=== PATIENT | female | born 1930 | race Caucasian/White ===

== ENCOUNTER → 2016-07-12 | Outpatient (CLI) | payer MEDICARE ==
[~2016-07-12] MED LIST: ACETAMINOPHEN-H1 TA2 PO; ALL DAY ALLERGY10 MG PO; ALLEGRA ALLERG180 M2 PO; ALLEGRA-D 24 H1 EACH PO; ATENOLOL25 MG PO; ATIVAN0.5 MG PO; BREO ELLIPTA 11 EACH IH; CARDIZEM120 MG PO; CEFTRIAXONE1 GM IJ; CLARITIN10 MG PO; CLINDAMYCIN HC300 MG PO; COREG12.5 M1 NG; COREG3.125 MG PO; COREG6.25 MG PO; COUMADIN2 M1 PO; COUMADIN2 MG PO; COUMADIN3 M1 PO; COUMADIN5 M2 PO; Coumadin2.5 MG PO; D3 DOTS2000 UNIT PO; DONEPEZIL HCL10 MG PO; DONEPEZIL HYDRO10 M1 PO; DOXYCYCLINE100 M3 PO; DUONEB 3 MG/3 ML3 M1 INH; FLUONAZOLE200 MG PO; GUAIFENESIN600 MG PO; KLOR-CON20 MEQ PO; LASIX20 MG PO; LASIX40 MG PO; LOPRESSOR5 MG/5 ML IV; MAPAP325 MG PO; METFORMIN500 MG PO; MIDODRINE HCL5 M1 PO; MIRALAX POWDER17 G1 PO; MIRALAX17 GM PO; MIRALAX17 GM/PACK PO; MORPHINE SULF2 MG/M1 IV; NAMENDA10 MG PO; Nystatin Ointme30 GM T; OXYGEN NAS; PRAVACHOL40 MG PO; PROAMATINE5 MG PO; Q-TUSSIN100 MG/5 M PO; SYMBICORT1 AE1 IH; SYMBICORT1 AE1 INH; TEMAZEPAM15 M1 PO; TRAMADOL HCL50 MG PO; VITAMIN D-32000 UNI1 PO; XANAX0.25 MG PO; ZESTRIL10 MG PO; ZESTRIL5 MG PO; ZITHROMAX Z PA250 MG PO; ZITHROMAX250 MG PO; Zestril,Prinivil5 MG PO
--- NOTE | ~2016-07-12 | PR ---
[place], [place] PROGRESS NOTE NAME: QUANG PETERSON [facility] #: [id number] UNIT #: [id number] ROOM: DOCTOR: NATALY LuisROBI BIRTHDATE: [birth year] DOS: 07/12/2016 CHIEF COMPLAINT: Followup of ulcer of the left lower extremity as well as the right buttock area. HISTORY OF PRESENT ILLNESS: This is an 86-year-old female with a history of dementia who has had a pressure ulcer of the left lower extremity distally secondary to a cast that she had to wear for a recent fracture of her leg. She is from a care home. The wound has been present approximately for 3 weeks now. She has been coming to the Wound Clinic for 2 weeks. We have been using TheraHoney and she has been having a good response to this. The wound continues to get smaller. She also has a pressure ulcer of the right buttock area and some dermatitis secondary to episodes of diaper dermatitis. She was also getting TheraHoney and a foam dressing and a Calazime to the area. In general, her family is with her. They report no new issues. She is trying to stay off of it; however, when she does sit in a wheelchair, she does have a cushion and they have been trying to make sure she is not having episodes of incontinence and sitting in stool or urine. Apparently the cast is being removed when she is in bed and she is going to be using an Aircast now and physical therapy. OBJECTIVE: VITAL SIGNS: Stable. Blood pressure is 108/60, pulse of 80, respirations 20, temperature is 98.7. The wound on the left lower extremity is measuring approximately 1 x 0.6 x 0.1. There is definitely a lot of improvement. The erythema around it is completely resolved much less necrotic tissue. I am able to see at least 30-40% of the base of the wound, whereas before, none of it was visible and there is still a minimal amount of fibrin slough, but it is definitely improved. No debridement was done. Her buttock area wound is also the ulcer is smaller at 0.3 x 0.7 x 0.1. The surrounding erythema is improved, although there is still a fair amount of excoriation present not as much as before, but still pretty marked. No debridement was done. There is minimal fibrin and slough present in the base of the wound. ASSESSMENT AND PLAN: Pressure ulcer of the left lower extremity. It is definitely improving with TheraHoney. I would continue with this for now and she should follow up in one week as well as a pressure ulcer of the buttock area. It is definitely smaller as well and I would continue with TheraHoney. I would actually switch from Calazime to nystatin powder to see if this will help with some excoriation and she should follow up with us in one week. [place], [place] PROGRESS NOTE NAME: QUANG PETERSON UNIT #: [id number] ROOM: DOCTOR: ROBI INGRAM M.D. BIRTHDATE: [birth year] ROBI INGRAM MD CM:STEPHANIE [id number] ROBI INGRAM M.D. 07/12/16 2012 interface
--- NOTE | ~2016-07-12 | WRIGHTHP ---
[place], [place] PATIENT HISTORY AND PHYSICAL EXAM NAME: QUANG PETERSON [facility] #: [id number] UNIT #: [id number] ROOM: DOCTOR: NATALY LuisROBI BIRTHDATE: [birth year] DOS: 06/27/2016 WOUND CARE HISTORY AND PHYSICAL CHIEF COMPLAINT: Ulcer of the left lower extremity. HISTORY OF PRESENT ILLNESS: This is an 86-year-old female who resides in a longterm. She had a recent fall towards the end of May and suffered a closed ankle fracture. She has a fracture boot on the left lower extremity for fracture and she was referred to us from her orthopedic doctors secondary to what appears to be a pressure ulcer that was discovered upon removal of the boot. Her family is with her today, and she has pictures of how it looked at first, which appeared slightly bigger and more irritated before. She is to wear the fracture boot when she is out of bed. Otherwise, she is weightbearing as tolerated with a fracture boot on. PAST MEDICAL HISTORY: Remarkable for dementia, COPD, near syncope. She is oxygen dependent, history of congestive heart failure, diabetes mellitus type 2, hypertension, gout, atrial fibrillation, on Coumadin. Alzheimers dementia, cholelithiasis, hyperlipidemia, obesity, osteoarthritis, history of abdominal pains, tachycardia, leukocytosis, history of elevated PTT, bacteria in the urine, history of left breast mass, history of elevated myoglobin levels, malnutrition, history of sepsis, history of falls, history of dementia as stated above, she is markedly debilitated. There is a past history of edema and apnea. ALLERGIES: QUINOLONES, AVELOX, CIPRO. MEDICATIONS: As follows, Katherine-D 24 - 180/224 daily, midodrine 5 mg t.i.d., Coreg 6.25 b.i.d., Namenda 10 mg daily, Coumadin 3 mg daily, pravastatin 40 mg daily, lisinopril 5 daily, Symbicort 2 inhalations b.i.d., benazepril 10 mg at bedtime, guaifenesin 600 mg q. 12 hours, MiraLax daily, Lasix 20 daily, vitamin D3 2000 units b.i.d. SOCIAL HISTORY: The patient is a longterm resident and does not appear to be ambulatory. She is markedly debilitated. REVIEW OF SYSTEMS: The really is unable to provide any significant review of systems The family does report, however, that she does not eat well. PHYSICAL EXAMINATION: GENERAL: This is an elderly female who moans and groans just upon being placed on to the bed. She appears younger than her stated age, is in no acute respiratory distress. VITAL SIGNS: Her temperature is 98.1, pulse is 70, respirations 18, blood pressure is 130/58. EXTREMITIES: She has what appears to be unstageable pressure ulcer of the left lateral distal lower leg that is measuring approximately 1 x 1 x 0.1. There is adherent slough obscuring the base of the wound. There is no purulence noted. The patient had noncompressible ABIs while in clinic today; however, she did have recent looks like recent arterial duplex of the left leg. The SIMÓN was 1.12 [place], [place] PATIENT HISTORY AND PHYSICAL EXAM NAME: QUANG PETERSON UNIT #: [id number] ROOM: DOCTOR: ROBI INGRAM M.D. BIRTHDATE: [birth year] and it did say the waveforms are triphasic, there is some mild plaque, biphasic waveforms are seen, but it does not say exactly where but the impression was normal, left lower extremity arterial ultrasound. Currently, the rest of her exam, I do not appreciate any JVD. She has oxygen on. Her lungs are clear to auscultation anteriorly. Cardiovascular exam is S1, S2 irregularly irregular. Abdomen is obese. Extremities, she has really no edema. She is confused and unable to provide review of systems. LABORATORY DATA: Done on the 06/22/2016 show albumin of 2.6, BUN of 19, creatinine of 0.98, chloride 98, potassium is 4, sodium 145, total protein is 6.9. ASSESSMENT AND PLAN: Patient has an unstageable pressure ulcer of the left lower extremity. It does appear that she has adequate vascular status at this point. The pressure was related to the boot, which she needs for her healing up for fracture, but they are to remove the boot whenever she is in bed or the boot only needs to be placed when she is out of bed, so this needs to be done. At this point, since there is some slough noted in the base of the wound. I would like to try TheraHoney which also has an antibacterial properties, I would like to use this to see if we can help clean the wound up with TheraHoney due to the patient's severe dementia. I would like to try and see how much we can clean it up with topical agents first before a sharp debridement will be considered. I would also use a foam dressing as this will help protect it and pad the area even further and she does have orders from ortho regarding patting the leg even further with other materials. It is apparently she had ABD pad as well as an Ventura wrap on as well. So, we will follow up the patient in one week. ROBI INGRAM MD CM:HISPHYS:PATIENT HISTORY AND PHYSICAL EXAMINATION [id number] ROBI INGRAM M.D. 07/09/16 0652 interface
== END ==
LOC: WOUNDCARE 06-27 11:33
DX: E11.622 Type 2 diabetes mellitus with other skin ulcer (principal); L89.313 Pressure ulcer of right buttock, stage 3; L89.890 Pressure ulcer of other site, unstageable; F03.90 Unspecified dementia, unspecified severity, without behavioral disturbance, psychotic disturbance, mood disturbance, and anxiety; L22 Diaper dermatitis; S82.892D Other fracture of left lower leg, subsequent encounter for closed fracture with routine healing

== ENCOUNTER → 2016-07-19 | Outpatient (CLI) | payer MEDICARE ==
--- NOTE | ~2016-07-19 | PR ---
[place], [place] PROGRESS NOTE NAME: QUANG PETERSON [facility] #: [id number] UNIT #: [id number] ROOM: DOCTOR: NATALY LuisROBI BIRTHDATE: [birth year] DOS: 07/19/2016 CHIEF COMPLAINT: Followup of an ulcer of the left lower extremity as well as the right buttock area. HISTORY OF PRESENT ILLNESS: This is an 86-year-old female with a history of severe dementia who is very debilitated, who has had a pressure ulcer of the left lower extremity distally secondary to a cast that she had had to wear for a recent fracture of her leg. She is from a retirement facility. The wound has been present for approximately weeks now, she has been coming to the Wound Clinic for 3 weeks. We have been using TheraHoney and it does seem to have helped somewhat. She is accompanied usually by her family. However, today, she has a caregiver who knows her and is familiar with the patient and the family who is here. She states that she was given an Aircast to try instead of the other cast that she was wearing and this was actually not helping current therapy. It was making it more difficult for her to do anything in therapy so they discontinued the Aircast. She says currently she is not getting any therapy as she is not able to really to do any type of physical activity. She does state that for the most day she gets up in a sitting in a chair from morning to early afternoon. She does have cushion on her chair. They have been no new reports as far as any concerns on the buttock area at this time, any new issues regarding that. However, her caregiver who is accompanying here was concerned about some area on her left heel that felt a little bit mushy and also she had noticed some breakdown also above this area, which is new. They offer no other specific complaints. PHYSICAL EXAMINATION: SKIN: Today, she is afebrile, pulse is 66, respirations are 20, temperature is 98.4, blood pressure is 124/64. The left lower leg wound is measured about the same in length and width from when she first came at 1 x 1 cm. There is increase in the depth at 0.2 secondary to some of the necrotic tissue being removed by the TheraHoney. The surrounding erythema is definitely improved. There is no purulence, cellulitis or tenderness associated; however, there is still a moderate amount of ascitic slough present in the base of the wound. The right gluteal fold area is definitely improved in appearance. The excoriation is also much improved as well. The wound appearance is improved. There is less adherent slough present and it does look fairly stable. The measurements are 0.4 x 0.7 x 0.2 and there is really minimal fibrin slough present, but overall appearance of the wound is much improved. Her left heel at the heel is mushy and has some nonblanchable erythema. It is not acutely tender and there is no open area on the heel; however, above that near the Achilles area, there is some excoriation and breakdown and what appears to be an unstageable area of breakdown around the Achilles area. No debridement was done today. ASSESSMENT AND PLAN: The pressure ulcer of the right gluteal fold is stable and I would continue with TheraHoney. As long as she continues to improve with the TheraHoney, I would continue with this for now. She also has foam being used. For the left lateral leg wound, the wound itself appears stable; however, there is still fibrin slough present in the base of the wound. Due to the patient's mental status and gets quite easily agitated, I would try conservative treatment [place], [place] PROGRESS NOTE [id number] UNIT #: [id number] ROOM: DOCTOR: ROBI INGRAM M.D. BIRTHDATE: [birth year] with topical debriding agents if possible. Since the TheraHoney has been used for a few weeks now without much change yet, I would see if we can try to get Santyl on the wounded instead if this is possible. I would like to try Santyl for now and to have her change the foam every other day. The other area that I am concerned about is her heel and the Achilles area. I explained to the caregiver who is here that this is the pressure related problem and that when she is lying in bed, she should really have her heels floated, especially with where the Achilles tendon is and not have pillows right pressing on that area should be above that, so that her heels and Achilles area are completely floated. In the meantime, I would add a foam dressing to protect it and encourage the patient to be offloaded as much as possible while she is in bed. I did place a call to Dr. Mitchell's office who is her orthopedic surgeon to see if there is some way that her walking cast boot can be padded with some foam to see if this would help as well. It is not clear to me if it is from the device or more likely this is from her lying in bed with her heels not being offloaded, it is most likely the culprit I think. The patient has multiple comorbidities, is quite very debilitated and these issues will make wound healing difficult for her. Followup is in one week. ROBI INGRAM MD CM:STEPHANIE [id number] ROBI INGRAM M.D. 07/19/16 1057 interface
== END ==
LOC: WOUNDCARE 01:32
DX: E11.622 Type 2 diabetes mellitus with other skin ulcer (principal); L89.313 Pressure ulcer of right buttock, stage 3; L89.890 Pressure ulcer of other site, unstageable; L89.610 Pressure ulcer of right heel, unstageable; L22 Diaper dermatitis; F03.90 Unspecified dementia, unspecified severity, without behavioral disturbance, psychotic disturbance, mood disturbance, and anxiety

== ENCOUNTER 2016-07-25 09:52 | Inpatient (IN) | payer MEDICARE ==
[~2016-07-25] VITALS: Ht 167.6 cm; Wt 97.6 kg
--- NOTE | ~2016-07-25 | CON ---
[place], [place] REPORT OF CONSULTATION NAME: QUANG PETERSON [facility] #: [id number] UNIT #: [id number] ROOM: [id number] DOCTOR: NATALY LuisROBI BIRTHDATE: [birth year] DOS: 07/25/2016 WOUND CARE CONSULTATION HISTORY OF PRESENT ILLNESS: This is an 86-year-old female with multiple medical problems who resides in a assisted and was sent to the Emergency Department for markedly elevated INR. She is known to me from the wound clinic. We have been following her for her pressure ulcer of her left lower extremity, which is located on the lateral distal leg of the left lower leg as well as a pressure ulcer of the right gluteus. She has had a pressure ulcer of her leg for approximately 4 weeks now. It started out from a cast that she had to wear for a recent fracture of her left leg. She currently is only using this device whenever she is up out of bed; however, the patient is markedly debilitated and is really nonambulatory. She is in order to move from her wheelchair, she has to be lifted by a Radha in our clinic. In any case, she has had the wound on her left leg for approximately 4 weeks now. It has been responding fairly well to TheraHoney and a foam dressing. In addition, she has had a pressure ulcer of the buttock area that was initially staged as a stage 3 as she had some fibrin slough present in the base of it, although it was noted to be relatively superficial still there was some surrounding area of denuded skin and dermatitis secondary to incontinence that was also being addressed as well. This was also being treated with TheraHoney and a foam dressing. Of concern last week in the clinic, it was noted that she had what appeared to start of her pressure ulcer of the left heel, stage 1, as there was an area of non-blanchable erythema of the left heel, and there was also an excoriated area. There was an excoriated area and breakdown near the Achilles area as well in the left heel and that was felt to be secondary to either friction or from pressure from being bedridden. It was recommended that the patient had her heels floated and protected with a foam dressing when she was in bed at that time. This patient, however, was brought in today through the Emergency Department for an elevated INR of 11.4. Apparently, this was just some routine blood work that was done when she was apparently transferring to [facility] from [facility] . The family is at her bedside. Otherwise, she has had no specific new complaints. They have noticed a cough and requiring increased nebulizer treatments, but other than that, there are no new reports per family or patient. PAST MEDICAL HISTORY: Significant for the following abdominal pain, atrial fibrillation, bacteriuria, congestive heart failure, cholelithiasis, closed avulsion fracture of the distal end of the left fibula, COPD, dementia. She is on chronic oxygen, diabetes type 2, hypertension, elevated CRP, elevated CO2 level, elevated myoglobin, elevated PTT, history of fall, hypertension, hyperglycemia, hyperlipidemia, left breast mass, leukocytosis, moderate malnutrition, near syncope, nondisplaced fracture of the medial malleolus of the left tibia, obesity, osteoarthritis, sepsis, SIRS, tachycardia. PAST SURGICAL HISTORY: She is status post cataract surgery, cholecystectomy. SOCIAL HISTORY: She is a resident at the assisted which she does not drink alcohol or use illicit drugs. She is a former smoker. [place], [place] REPORT OF CONSULTATION NAME: QUANG PETERSON UNIT #: [id number] ROOM: 416 DOCTOR: ROBI INGRAM M.D. BIRTHDATE: [birth year] FAMILY HISTORY: Noncontributory at this time. CURRENT MEDICATIONS: That have been ordered are as follows: Vitamin D 2000 units in the morning, MiraLax powder daily, Namenda 10 mg daily, Zestril 5 daily, Lasix 20 daily, enoxaparin 40 mg subcutaneous looks to be starting tomorrow, Dulera 200 q.12 hours, Mucinex 600 p.o. b.i.d., Aricept 10 mg at bedtime, Coreg 6.25 b.i.d., Pravachol 40 mg q.p.m., midodrine 5 mg t.i.d., albuterol nebulizers t.i.d. p.r.n., Zofran p.r.n., milk of magnesium 30 mL p.o. daily, Dulcolax 5 daily, Tylenol p.r.n., vitamin K was given it looks like already. ALLERGIES: FLUOROQUINOLONE. REVIEW OF SYSTEMS: Unobtainable at this time. She does appear to be alert. She does recognize me as far as knowing that she has seen me before. She tends to moan and groan whenever she is being transferred or moved around and this seems to be about her baseline. The family does report that she has had a cough, and they have had to give her extra neb treatments yesterday, also her appetite is not generally good. No other specific complaints are noted at this time, the other review of systems are not available presently. PHYSICAL EXAMINATION: VITAL SIGNS: Temperature is 97.9, pulse of 98, respirations 20, blood pressure was 134/107, but previously 4 hours prior to that, it was 102/88. GENERAL: The patient is in no acute respiratory distress, but does have some tachypnea and some pursed lip breathing. She is on oxygen and she has what appears to be a productive cough. LUNGS: She has some coarse rhonchi anteriorly. CARDIOVASCULAR: S1, S2, regular rate and rhythm, but it is difficult to hear heart sounds secondary to patient's coarse rhonchi that are noted. ABDOMEN: Obese. EXTREMITIES: She has really no edema on her left lateral lower leg distally above the lateral malleolus is a small open area. It is definitely improved from the last time I have seen it. It is measuring approximately 0.9 x 0.9 x 0.2. There is a minimal to moderate amount of fibrin slough present at the base of the wound. The depth is 0.2. There is no surrounding erythema, purulence or tenderness. This wound looks stable at this time. I do not appreciate any erythema of her left heel, presently this was noted last week in the clinic, but she still has an area of small excoriations and breakdown. It seems that this area has scabbed over on the left heel, and this also appears stable on her gluteal fold. On the right gluteal fold, she has an open wound that is measuring approximately 0.4 x 0.7 x 0.2. There is minimal fibrin slough present in the base of the wound. The surrounding excoriation and dermatitis that was present on prior occasion is definitely improved as well. LABORATORY DATA: Her white count is 8, her hemoglobin is 11, her hematocrit is 37.3, platelets are 260. Her sodium is 146, potassium is 3.5, chloride is 102, BUN is 24, creatinine is 0.94, glucose is 149. LFTs are normal. Albumin is low at 2.0. Her INR is over 11. [place], [place] REPORT OF CONSULTATION NAME: QUANG EPTERSON UNIT #: [id number] ROOM: 416 DOCTOR: ROBI INGRAM M.D. BIRTHDATE: [birth year] ASSESSMENT AND PLAN: Pressure ulcer of the left leg, which I would classify as unstageable secondary to the fibrin slough at the base of the wound, although part of base of the wound is visible. This wound appears to be stable. We have been using TheraHoney in the clinic and foam, and it does appear to be improving on this regimen for now. I would continue this regimen as it does seem to be helping. We may want to consider in the future considering changing to a DuoDERM instead of the foam to help remove some of the slough, however, for now, I would just use the foam at this time. The area that I had noted last week in the clinic is stable on the left heel. There is still some excoriation and some breakdown of the Achilles area, so I would keep this area protected with a foam dressing as well. I think this is mostly from keeping her heels on her bed and not offloading while she is in bed, so we will definitely have to encourage offloading and keeping her heels and Achilles area offloaded. Family reports that she did have an offloading device that they were using in the assisted that was shaped as a donut and that definitely seems to have helped, so this may be something that the family can consider in the future as well. As far as her pressure ulcer of her buttock area, this is stable and it does definitely looks improved overall. The dermatitis is also calmed down quite a bit as well, so I will continue with TheraHoney and antifungal powder, which we were using and a foam dressing. We will encourage offloading and keep her off of this area if possible. If is going to be up in a chair, she will definitely need a cushion and I would limit sitting in one position for any extended period of time. The patient has multiple medical problems that are being managed by her medical team, and these issues may make wound healing difficult. She is here with her multiple medical problems and her medical team is managing them. ROBI INGRAM MD CM:CONSTR:REPORT OF CONSULTATION 1650 08/03/16 1332 interface
[2016-07-25 09:52] VITALS: BP 98/60
[~2016-07-25 09:52] MED LIST changes: -ACETAMINOPHEN-H1 TA2 PO; -ALL DAY ALLERGY10 MG PO; -ALLEGRA ALLERG180 M2 PO; -ATIVAN0.5 MG PO; -BREO ELLIPTA 11 EACH IH; -CEFTRIAXONE1 GM IJ; -CLARITIN10 MG PO; -COREG12.5 M1 NG; -COUMADIN2 MG PO; -Coumadin2.5 MG PO; -D3 DOTS2000 UNIT PO; -DONEPEZIL HCL10 MG PO; -FLUONAZOLE200 MG PO; -LOPRESSOR5 MG/5 ML IV; -MAPAP325 MG PO; -MIDODRINE HCL5 M1 PO; -MIRALAX POWDER17 G1 PO; -MORPHINE SULF2 MG/M1 IV; -Q-TUSSIN100 MG/5 M PO; -SYMBICORT1 AE1 INH; -TEMAZEPAM15 M1 PO; -TRAMADOL HCL50 MG PO; -ZESTRIL5 MG PO
[2016-07-25 10:16] LABS: BASO # 0.1 10*3/uL (0.0-0.1); BASO % 0.6 % (0.0-1.0); EOS # 0.1 10*3/uL (0.0-0.4); EOS % 0.9 % (1.0-4.0); HEMATOCRIT 37.3 % (37.0-47.0); IG # 0.1 10*3/uL (0.0-0.1); LYMPH # 1.4 10*3/uL (1.3-4.4); LYMPH % 17.2 % (27.0-41.0); MEAN CELL VOLUME 95.9 fl (81.0-99.0); MEAN CORPUSCULAR HGB 28.3 pg (27.0-31.0); MEAN CORPUSCULAR HGB CONC 29.5 g/dl (33.0-37.0); MEAN PLATELET VOLUME 10.6 fl (9.6-12.3); MONO # 0.7 10*3/uL (0.1-1.0); MONO % 9.1 % (3.0-9.0); NEUT # 5.7 10*3/uL (2.3-7.9); NEUT % 71.3 % (47.0-73.0); NUCLEATED RED BLOOD CELL 0.2 % (0.0-0.0); PLATELET COUNT AUTOMATED 260 10*3/uL (130-400); RED BLOOD COUNT 3.89 10*6/uL (4.10-5.10); RED CELL DISTRI WIDTH 13.7 % (0-14.5)
[2016-07-25 10:34] LABS: PROTHROMBIN TIME > 130.0 SECONDS (9.0-12.4)
[2016-07-25 10:35] LABS: ALKALINE PHOSPHATASE 112 U/L (45-117); BILIRUBIN, TOTAL 0.5 mg/dl (0.2-1.0); BUN 24 mg/dl (7-24); CARBON DIOXIDE 38 mmol/L (21-32); CHLORIDE 102 mmol/L (98-107); EST GLOM FILT AFRICAN AMERICAN > 60 ml/min; GLUCOSE 149 mg/dL (65-99); POTASSIUM 3.5 mmol/L (3.5-5.1); SGOT/AST 27 IU/L (3-35); SGPT/ALT 28 U/L (12-78); SODIUM 146 mmol/L (136-145); TOTAL PROTEIN 6.6 gm/dL (6.4-8.2)
[2016-07-25 10:36] LABS: INTERNATIONAL NORM RATIO > 11.4 (2.0-3.5)
[2016-07-25] MEDS ORDERED: ATIVAN0.5 MG PO (11:54)
[2016-07-25] MEDS ORDERED: CLARITIN10 MG PO (11:55)
[2016-07-25] MEDS ORDERED: TRAMADOL HCL50 MG PO (11:55)
[2016-07-25] MEDS ORDERED: BREO ELLIPTA 11 EACH IH (11:56)
[2016-07-25 12:02] VITALS: BP 82/58; BP 94/58
[2016-07-25 12:40] VITALS: BP 102/88
[2016-07-25 16:00] VITALS: BP 134/107
[2016-07-25 20:00] VITALS: BP 125/70
[2016-07-26 03:04] VITALS: BP 125/70
[2016-07-26 07:02] LABS: BUN 19 mg/dl (7-24); CARBON DIOXIDE 37 mmol/L (21-32); CHLORIDE 103 mmol/L (98-107); EST GLOM FILT AFRICAN AMERICAN > 60 ml/min; GLUCOSE 117 mg/dL (65-99); POTASSIUM 3.8 mmol/L (3.5-5.1); SODIUM 146 mmol/L (136-145)
[2016-07-26 07:10] LABS: BASO # 0.1 10*3/uL (0.0-0.1); BASO % 0.7 % (0.0-1.0); EOS # 0.1 10*3/uL (0.0-0.4); EOS % 1.1 % (1.0-4.0); HEMATOCRIT 39.1 % (37.0-47.0); HEMOGLOBIN 11.3 g/dl (12.0-16.0); IG # 0.1 10*3/uL (0.0-0.1); LYMPH # 1.8 10*3/uL (1.3-4.4); LYMPH % 21.1 % (27.0-41.0); MEAN CELL VOLUME 96.1 fl (81.0-99.0); MEAN CORPUSCULAR HGB 27.8 pg (27.0-31.0); MEAN CORPUSCULAR HGB CONC 28.9 g/dl (33.0-37.0); MONO # 0.8 10*3/uL (0.1-1.0); MONO % 9.6 % (3.0-9.0); NEUT # 5.6 10*3/uL (2.3-7.9); NEUT % 66.5 % (47.0-73.0); NUCLEATED RED BLOOD CELL 0.2 % (0.0-0.0); PLATELET COUNT AUTOMATED 254 10*3/uL (130-400); RED BLOOD COUNT 4.07 10*6/uL (4.10-5.10); RED CELL DISTRI WIDTH 13.6 % (0-14.5); WHITE BLOOD COUNT 8.4 10*3/uL (4.8-10.8)
[2016-07-26 07:30] LABS: INTERNATIONAL NORM RATIO 1.4 (2.0-3.5); PROTHROMBIN TIME 15.1 SECONDS (9.0-12.4)
[2016-07-26 08:00] VITALS: BP 134/68
[2016-07-26 12:00] VITALS: BP 128/64
[2016-07-26] MEDS ORDERED: ALL DAY ALLERGY10 MG PO (14:40)
[2016-07-26] MEDS ORDERED: COUMADIN2 MG PO (14:40)
[2016-07-26 16:00] VITALS: BP 117/65
[2016-08-07] MEDS ORDERED: ALLEGRA ALLERG180 M2 PO (10:56)
[2016-08-07] MEDS ORDERED: COUMADIN2 MG PO (10:57)
[2016-08-07] MEDS ORDERED: DONEPEZIL HCL10 MG PO (10:57)
[2016-08-07] MEDS ORDERED: D3 DOTS2000 UNIT PO (10:57)
[2016-08-07] MEDS ORDERED: DUONEB 3 MG/3 ML3 M1 INH (10:57)
[2016-08-07] MEDS ORDERED: COREG6.25 MG PO (10:57)
[2016-08-07] MEDS ORDERED: LASIX20 MG PO (10:58)
[2016-08-07] MEDS ORDERED: Q-TUSSIN100 MG/5 M PO (10:58)
[2016-08-07] MEDS ORDERED: MIRALAX POWDER17 G1 PO (10:59)
[2016-08-07] MEDS ORDERED: ZESTRIL5 MG PO (10:59)
[2016-08-07] MEDS ORDERED: NAMENDA10 MG PO (10:59)
[2016-08-07] MEDS ORDERED: MIDODRINE HCL5 M1 PO (10:59)
[2016-08-07] MEDS ORDERED: SYMBICORT1 AE1 INH (11:00)
[2016-08-07] MEDS ORDERED: PRAVACHOL40 MG PO (11:00)
[2016-08-13] MEDS ORDERED: FLUONAZOLE200 MG PO (13:32)
[2016-08-13] MEDS ORDERED: TEMAZEPAM15 M1 PO (13:32)
[2016-08-13] MEDS ORDERED: MORPHINE SULF2 MG/M1 IV (13:32)
[2016-08-13] MEDS ORDERED: Coumadin2.5 MG PO (13:32)
[2016-08-13] MEDS ORDERED: LOPRESSOR5 MG/5 ML IV (13:32)
[2016-08-13] MEDS ORDERED: CEFTRIAXONE1 GM IJ (13:32)
[2016-08-13] MEDS ORDERED: ACETAMINOPHEN-H1 TA2 PO (13:32)
[2016-08-13] MEDS ORDERED: MAPAP325 MG PO (13:32)
[2016-08-16] MEDS ORDERED: COREG12.5 M1 NG (11:52)
== END 2016-07-26 19:35 | disposition other institution (70) | DRG 314 ==
LOC: ED 09:52 → 4E 10:46 → EDHOLD 10:46 → 4E 11:18
PROVIDERS: Internal Medicine; Nurse Practitioner Family
DX: I95.9 Hypotension, unspecified (principal); E43 Unspecified severe protein-calorie malnutrition; I11.0 Hypertensive heart disease with heart failure; E11.65 Type 2 diabetes mellitus with hyperglycemia; Z99.81 Dependence on supplemental oxygen; I50.32 Chronic diastolic (congestive) heart failure; G30.9 Alzheimer's disease, unspecified; F02.80 Dementia in other diseases classified elsewhere, unspecified severity, without behavioral disturbance, psychotic disturbance, mood disturbance, and anxiety; R79.1 Abnormal coagulation profile; M19.90 Unspecified osteoarthritis, unspecified site; E66.9 Obesity, unspecified; I48.2 Chronic atrial fibrillation; J43.1 Panlobular emphysema; E78.5 Hyperlipidemia, unspecified; T45.515A Adverse effect of anticoagulants, initial encounter; L89.890 Pressure ulcer of other site, unstageable; Z88.1 Allergy status to other antibiotic agents; Z87.81 Personal history of (healed) traumatic fracture; Z90.49 Acquired absence of other specified parts of digestive tract; Z98.42 Cataract extraction status, left eye; Z98.41 Cataract extraction status, right eye; Z79.899 Other long term (current) drug therapy; Z91.81 History of falling; Z87.891 Personal history of nicotine dependence; Z68.30 Body mass index [BMI] 30.0-30.9, adult; Z79.84 Long term (current) use of oral hypoglycemic drugs

== ENCOUNTER → 2016-08-02 | Outpatient (CLI) | payer MEDICARE ==
[~2016-08-02] MED LIST changes: +ACETAMINOPHEN-H1 TA2 PO; +ALL DAY ALLERGY10 MG PO; +ALLEGRA ALLERG180 M2 PO; +ATIVAN0.5 MG PO; +BREO ELLIPTA 11 EACH IH; +CEFTRIAXONE1 GM IJ; +CLARITIN10 MG PO; +COREG12.5 M1 NG; +COUMADIN2 MG PO; +Coumadin2.5 MG PO; +D3 DOTS2000 UNIT PO; +DONEPEZIL HCL10 MG PO; +FLUONAZOLE200 MG PO; +LOPRESSOR5 MG/5 ML IV; +MAPAP325 MG PO; +MIDODRINE HCL5 M1 PO; +MIRALAX POWDER17 G1 PO; +MORPHINE SULF2 MG/M1 IV; +Q-TUSSIN100 MG/5 M PO; +SYMBICORT1 AE1 INH; +TEMAZEPAM15 M1 PO; +TRAMADOL HCL50 MG PO; +ZESTRIL5 MG PO
--- NOTE | ~2016-08-02 | PR ---
[place], [place] PROGRESS NOTE NAME: QUANG PETERSON [facility] #: [id number] UNIT #: [id number] ROOM: DOCTOR: NATALY Luis,ROBI BIRTHDATE: [birth year] DOS: 08/02/2016 Wound Care Progress Note CHIEF COMPLAINT: Followup of pressure ulcer of the right buttock area as well as pressure ulcer of the left lower extremity. HISTORY OF PRESENT ILLNESS: The location of the wounds are the left lateral leg. The duration has been approximately 5-6 weeks now. It is a pressure ulcer from a cast boot that was necessary for her as she had a fracture of her leg. It is considered unstageable secondary to adherent slough at the base of the wound. The buttock area also has a stage III ulcer that is also associated with incontinence dermatitis, has been present for approximately 5 weeks as well. Comorbid conditions are dementia, severe debility, failure to thrive, chronic lung disease on oxygen, unable to mobilize herself without assistance and [place] [facility] [place] She is accompanied by her daughter. PHYSICAL EXAMINATION: VITAL SIGNS: Today shows vitals that are stable. Temperature is 98.3, pulse is 76, respirations 20, blood pressure is 128/80. WOUND EXAM: The wound on the left lower leg is measuring smaller at 0.8 x 0.5 x 0.1. There is still some adherent slough at the base of the wound. The periwound looks good; however, it is not inflamed. There is no sign of infection. I tried to remove some of the slough with a sterile Q-tip; however, it was still tightly adherent. The buttock wound is measuring smaller at 0.5 x 0.5 x 0.1. It is fairly superficial at this point. There is minimal fibrin and slough present. Still there is some excoriation around the wound with other areas of dermatitis, possibly some irritation from incontinence and/or moisture. No debridement was done today. She also had an area of concern with her left Achilles area. Now it is just a very small dried scab, it looked stable, it is nontender, it is not infected. Her heel is less red than it had been, but still slightly mushy. Very dry skin is apparent. ASSESSMENT AND PLAN: Pressure ulcer of the left lower extremity. I would continue with Mónica, but I would like to try DuoDERM to see if that will help lift off some of the slough during the dressing changes and will be used to change it every third day. This should also help pad and protect the area as well. We will continue to pad and protect the Achilles area and also encourage offloading. Her daughter says that they are using a wedge for her heels, so we need to continue to offload her heels and her Achilles tendon when she is in bed. She needs moisturizer as well for her feet. For her buttock wound, it is definitely getting smaller. In general, there is still a fair amount of excoriation not as much as when she first came, but it does seem excoriated today as well, so I will continue with the TheraHoney to the wound base, but use Calazime and skin prep to the outer periwound in a slightly larger foam. The foam that was on was quite small and I think it would cover more of the excoriated area better if it was a little bit larger. The patient should follow up with us in one week. [place], [place] PROGRESS NOTE NAME: QUANG PETERSON UNIT #: [id number] ROOM: DOCTOR: ROBI INGRAM M.D. BIRTHDATE: [birth year] ROBI INGRAM MD CM:STEPHANIE [id number] ROBI INGRAM M.D. 08/02/16 [id number] interface
== END ==
LOC: WOUNDCARE 03:09
DX: E11.622 Type 2 diabetes mellitus with other skin ulcer (principal); L89.313 Pressure ulcer of right buttock, stage 3; L89.890 Pressure ulcer of other site, unstageable; F03.90 Unspecified dementia, unspecified severity, without behavioral disturbance, psychotic disturbance, mood disturbance, and anxiety; R53.81 Other malaise; R62.7 Adult failure to thrive